=== PATIENT | male | born 1940 | race Caucasian/White ===

== ENCOUNTER 2018-10-09 08:19 | Outpatient (CLI) | payer MEDICARE ==
[~2018-10-09 08:19] MED LIST: ASPI-1 PO; HYDR12.5 PO; LISI10TA4 PO; MULT-1085 PO; ONDA4TAB12 PO; SENN-173 PO
[2018-10-09 09:00] LABS: BASOPHILS % (AUTO) 0.7 % (0-1); EOSINOPHILS # (AUTO) 0.1 X10'3 (0-0.9); EOSINOPHILS % (AUTO) 1.8 % (0-6); HEMATOCRIT 47.1 % (42.0-52.0); HEMOGLOBIN 15.7 g/dl (14.0-17.9); LYMPHOCYTES # (AUTO) 1.8 X10'3 (1.1-4.8); LYMPHOCYTES % (AUTO) 27.7 % (21-51); MEAN CORPUSCULAR HEMOGLOBIN 29.7 PG (27.0-31.0); MEAN CORPUSCULAR HGB CONC 33.3 g/dL (33.0-36.5); MEAN CORPUSCULAR VOLUME 89.3 FL (78-98); MEAN PLATELET VOLUME 8.1 FL (7.4-10.4); MONOCYTES # (AUTO) 0.7 X10'3 (0-0.9); MONOCYTES % (AUTO) 10.8 % (2-12); NEUTROPHILS # (AUTO) 3.8 X10'3 (1.8-7.7); PLATELET COUNT 248 X10'3 (140-440); RED BLOOD COUNT 5.27 X10'6 (4.70-6.10); RED CELL DISTRIBUTION WIDTH 14.1 % (11.5-14.5); WHITE BLOOD COUNT 6.4 X10'3 (4.5-11.0)
[2018-10-09 09:12] LABS: PARTIAL THROMBOPLASTIN TIME 30 SECONDS (22-32)
[2018-10-09 09:22] LABS: ALANINE AMINOTRANSFERASE 42 U/L (12-78); ALBUMIN 3.6 G/DL (3.4-5.0); ALBUMIN/GLOBULIN RATIO 1.1 (1.1-1.5); ALKALINE PHOSPHATASE 60 IU/L (46-116); ANION GAP 5 (8-16); ASPARTATE AMINO TRANSFERASE 23 U/L (10-37); BILIRUBIN,TOTAL 0.5 MG/DL (0.1-1.0); BLOOD UREA NITROGEN 17 MG/DL (7-18); BUN/CREATININE RATIO 17.2 (5.4-32.0); CALCIUM 8.9 MG/DL (8.5-10.1); CHLORIDE 103 MMOL/L (99-107); CREATININE 0.99 MG/DL (0.60-1.10); GLUCOSE 102 MG/DL (70-104); POTASSIUM 3.9 MMOL/L (3.5-5.1); SODIUM 137 MMOL/L (135-145); TOTAL CARBON DIOXIDE 29.5 MMOL/L (24-32); eGFR 73 ML/MIN
== END 2018-10-09 23:59 | disposition home or self-care (01) ==
LOC: LAB 08:19
PROVIDERS: ATTEND Otolaryngology
DX: D69.1 Qualitative platelet defects (principal)
CPT/HCPCS: 36415; 80053; 85025; 85576; 85610; 85730

== ENCOUNTER 2021-06-22 08:34 | Emergency (ER) | payer MEDICARE ==
[~2021-06-22] VITALS: Ht 177.8 cm; Wt 97.7 kg
[~2021-06-22 08:34] MED LIST changes: +LISI10TA27 PO; -LISI10TA4 PO
[2021-06-22 08:45] VITALS: BP 159/89
[2021-06-22] MEDS ORDERED: CASIRIVIMAB/IMDEVIMAB (REGEN-COV) 600mg/600mg inject. SQ ONE ×4 (11:35)
== END 2021-06-22 14:03 | disposition home or self-care (01) ==
LOC: ER 08:35
DX: U07.1 COVID-19 (principal); R50.9 Fever, unspecified; I10 Essential (primary) hypertension; Z88.0 Allergy status to penicillin; Z88.8 Allergy status to other drugs, medicaments and biological substances; Z79.82 Long term (current) use of aspirin; Z79.899 Other long term (current) drug therapy; Z87.891 Personal history of nicotine dependence
CPT/HCPCS: 87635; 99283; C9803; M0243; Q0244

== ENCOUNTER 2023-12-19 00:40 | Emergency (ER) | payer MEDICARE ==
[~2023-12-19] VITALS: Ht 177.8 cm; Wt 94.1 kg
[~2023-12-19 00:40] MED LIST changes: -ASPI-1 PO; +BUDE0.5A3; +CALC-1215 PO; -HYDR12.5 PO; +MELA5CAP PO; -ONDA4TAB12 PO; -SENN-173 PO
[2023-12-19 00:46] VITALS: BP 193/87; PULSE 71; RESP 18; TEMP 98.1; O2SAT 96
[2023-12-19] MEDS ORDERED: OFLO5DRO EACHEYE ×2 (01:33→13:47)
[2023-12-19] MEDS: ofloxacin 0.33% 5ml ophthalmic drops EACHEYE ONE (01:35)
== END 2023-12-19 02:40 | disposition home or self-care (01) ==
LOC: ER 00:41
DX: B30.8 Other viral conjunctivitis (principal); I10 Essential (primary) hypertension; Z88.1 Allergy status to other antibiotic agents; Z88.0 Allergy status to penicillin; Z88.8 Allergy status to other drugs, medicaments and biological substances; Z79.51 Long term (current) use of inhaled steroids; Z79.899 Other long term (current) drug therapy; Z85.89 Personal history of malignant neoplasm of other organs and systems; Z98.890 Other specified postprocedural states
CPT/HCPCS: 99283